=== PATIENT | male | born 1960 | race Caucasian/White ===

== ENCOUNTER → 2017-09-20 | Outpatient (CLI) | payer SELFPAY ==
[~2017-09-20] MED LIST: DOXY100C2; HYDR-3720 PO; HYDR1TAB; METH10TA2 PO; METH40TA2 PO; MTH10T PO; NF-ESOM40C; PRM25T; SULF1TAB38 PO
--- NOTE | 2017-09-20 11:28 | Diagnostic Imaging Report ---
EXAMINATION: Ultrasound of the liver. INDICATION: Chronic active hepatitis B. FINDINGS: The pancreas is obscured by bowel gas. The liver is slightly heterogenous with no focal mass. The gallbladder demonstrates no stones or wall thickening. The gallbladder is distended measuring 5.7 cm in short axis. There is no pericholecystic fluid. The sonographic Cuadra sign is reportedly negative. The CBD is 9 mm in caliber. The right kidney is 11.2 cm in length with no hydronephrosis or focal lesion. No ascites. IMPRESSION: 1. A hydropic gallbladder is seen without stones or evidence of cholecystitis. 2. Dilated CBD. 3. Suggestion of liver cirrhosis without focal liver mass. Dictated by: Dictated on workstation # [id number]
== END ==
LOC: RAD 07:45
PROVIDERS: ATTEND Pediatrics
DX: B18.1 Chronic viral hepatitis B without delta-agent (principal)
CPT/HCPCS: 76705

== ENCOUNTER 2022-10-28 08:43 | Outpatient (CLI) | payer MEDICARE, OTHER ==
[~2022-10-28] VITALS: Ht 177.8 cm; Wt 84.0 kg
[2022-10-28 10:34] VITALS: BP 149/94
[2022-10-28 10:40] LABS: BILIRUBIN,URINE NEGATIVE (NEGATIVE); CLARITY,URINE CLEAR; COLOR,URINE YELLOW; GLUCOSE, URINE (UA) NEGATIVE (NEGATIVE); KETONES,URINE NEGATIVE (NEGATIVE); LEUKOCYTE ESTERASE ,URINE NEGATIVE (NEGATIVE); NITRITE,URINE NEGATIVE (NEGATIVE); PROTEIN,URINE NEGATIVE (NEGATIVE)
--- NOTE | 2022-10-28 10:44 | Physical Therapy Pre-Op Eval ---
PT Pre-Surgical Assessment Type of Surgery Type of Surgery: left TKA Prior Level of Function Current Living Status: patient states he doesn't live alone Locomotion (Upon Admit): Independent PLOF DME: Front Wheeled Walker, Crutches Subjective Entry Into Home: Stairs With Railing Steps Into Home: 5 Motor Control Motor Control: Motor Control WNL ROM ROM: WFL Strength Strength: WFL Gait Patient performs transfers and ambulation independently, doesn't use a cane or walker previously. Treatment Rendered Treatment: Patient instructed in assistive device, supported ambulation. Patient instructed in and given written program of ROM and strengthening exercises to be preformed post-op. Patient instructed in movement precautions where applicable. Patient demonstrates understandings of post-operative therapy protocol including gait pattern and exercise program. Pre-operative instruction completed; await physical therapy orders after surgery. Treatment Goal Met: Yes Assessment Goals Acheived: I Ambulation w/ FWW, Understands P-op Precaut, I Post-op Exercises Charges/GCodes Time In: 1025 Time Out: 1035 Total Billed Treatment Time: 10 Total Billed Treatment 1 visit LILIA SIMENTAL PT Oct 28, 2022 10:44
[2022-10-28 10:52] LABS: BACTERIA,URINE NEGATIVE /HPF
[2022-10-28] MEDS ORDERED: TENO25TA PO (10:56)
[2022-10-28] MEDS ORDERED: METH40TA2 PO (10:56)
[2022-10-28] MEDS ORDERED: LOVA40TA2 PO (10:56)
[2022-10-28] MEDS ORDERED: LISI20TA26 PO (10:56)
[2022-10-28 11:05] LABS: BASOPHILS % (AUTO) 0 % (0-10); EOSINOPHILS # (AUTO) 0.1 10^3/uL (0.0-0.3); EOSINOPHILS % (AUTO) 1 % (0-10); HEMATOCRIT 42 % (40-54); HEMOGLOBIN 14.1 g/dL (13.3-17.7); LYMPHOCYTES # (AUTO) 1.2 10^3/uL (1.0-4.0); LYMPHOCYTES % (AUTO) 26 % (12-44); MEAN CORPUSCULAR HEMOGLOBIN 32 pg (25-34); MEAN CORPUSCULAR HGB CONC 34 g/dL (32-36); MEAN CORPUSCULAR VOLUME 96 fL (80-99); MEAN PLATELET VOLUME 9.7 fL (9.0-12.2); MONOCYTES # (AUTO) 0.9 10^3/uL (0.0-1.0); MONOCYTES % (AUTO) 18 % (0-12); NEUTROPHILS # (AUTO) 2.5 10^3/uL (1.8-7.8); NEUTROPHILS % (AUTO) 53 % (42-75); PLATELET COUNT 163 10^3/uL (130-400); WHITE BLOOD COUNT 4.7 10^3/uL (4.3-11.0)
[2022-10-28 11:13] LABS: PROTHROMBIN TIME PATIENT 13.2 SEC (12.2-14.7)
[2022-10-28 11:22] LABS: ALBUMIN 4.2 GM/DL (3.2-4.5); BILIRUBIN,TOTAL 0.8 MG/DL (0.1-1.0); CALCIUM 8.9 MG/DL (8.5-10.1); CREATININE SERUM 0.88 MG/DL (0.60-1.30); POTASSIUM 4.2 MMOL/L (3.6-5.0); TOTAL PROTEIN 7.2 GM/DL (6.4-8.2)
[2022-10-28 11:25] LABS: ERYTHROCYTE SEDIMENTATION RATE 12 MM/HR (0-30)
--- NOTE | 2022-10-28 12:00 | Diagnostic Imaging Report ---
EXAMINATION: Chest 2 view HISTORY: Preop clearance. History of knee. COMPARISON: None available. FINDINGS: The lung volumes are normal. No focal consolidation is seen. No large pleural effusion or pneumothorax is seen. The cardiomediastinal silhouette is normal in size and contour. No acute osseous abnormality is seen. IMPRESSION: 1. No acute pleuroparenchymal process. Dictated by: Dictated on workstation # [id number]
== END 2022-10-28 12:38 ==
LOC: PREOP 08:43
PROVIDERS: ATTEND Orthopaedic Surgery
DX: Z01.818 Encounter for other preprocedural examination (principal); M17.12 Unilateral primary osteoarthritis, left knee
CPT/HCPCS: 36415; 71046; 80053; 81000; 82308; 85025; 85610; 85652; 86850; 86900; 86901; 87081

== ENCOUNTER 2022-11-04 05:54 | Inpatient (IN) | payer MEDICARE, OTHER ==
--- NOTE | 2022-10-28 07:16 | HISTORY AND PHYSICAL ---
DATE OF SERVICE: 11/04/2022 ADMISSION HISTORY AND PHYSICAL This will be inpatient admission on 11/04/2022 for left total knee arthroplasty. The patient will require regular inpatient admission due to pain management, need for physical therapy and gait abnormalities. HISTORY: The patient is a 62-year-old active gentleman with longstanding left knee pain. He has undergone treatment with multiple injections with no current relief. He reports activity limitations because of the knee. Radiographs reveal severe medial and patellofemoral arthrosis with complete loss of joint space. Due to functional impairment, failure to improve with conservative measures, the patient elected to proceed with surgical intervention. REVIEW OF SYSTEMS: No chest pain, no shortness of breath. No dysuria. PAST MEDICAL HISTORY: 1. Significant for opioid use disorder and on methadone for this. 2. Chronic hepatitis B, diabetes mellitus, hyperlipidemia, hypertension, osteoarthritis. PAST SURGICAL HISTORY: Hand and colonoscopy. FAMILY HISTORY: Significant for diabetes and cardiovascular disease. PRIMARY CARE PROVIDER: Dr. Sylvie Purdy. MEDICATIONS: 1. Voltaren arthritis. 2. Vemlidy. 3. Lovastatin. 4. Lisinopril. 5. Methadone. ALLERGIES: No known drug allergies. SOCIAL HISTORY: The patient does smoke tobacco. Denies alcohol use. PHYSICAL EXAM: GENERAL: The patient is well-developed, well-nourished, in no acute distress. HEENT: Normocephalic, atraumatic. Pupils equal, round, react to light. Oropharynx is clear. NECK: Supple. No lymphadenopathy. LUNGS: Clear to auscultation bilaterally. HEART: Regular rate and rhythm. ABDOMEN: Soft, nontender, nondistended. EXTREMITIES: His left knee demonstrates varus alignment, markedly tender along the medial joint line, pain with Jose Luis's. His range of motion is 0/2/125. There is no varus or valgus laxity. Negative anterior and posterior drawer. IMPRESSION: Severe left knee osteoarthritis, unresponsive to conservative measures. PLAN: Left total knee arthroplasty. The risks, benefits, options, ramifications and recovery have been discussed at length with the patient. He understands and wishes to proceed. He will be for inpatient admission on 11/04/2022. Job ID: [id number] DocumentID: [id number] Dictated Date: 10/19/2022 09:30:14 Asbestos Siding Mechanic Date: 10/19/2022 12:52:00 Dictated By: NELSON GROVER MD
[~2022-11-04] VITALS: Ht 177.8 cm; Wt 84.0 kg
[2022-11-04] VITALS (13 sets, daily range): BP systolic 126–179; BP diastolic 56–99
[~2022-11-04 05:54] MED LIST changes: +LISI20TA26 PO; +LOVA40TA2 PO; +TENO25TA PO
[2022-11-04] MEDS ORDERED: CEFUROXIME INJECTION 1,500 MG in NS (IVPB) 50 ML IV ONE (06:15)
[2022-11-04] MEDS: LACTATED RINGERS 1,000 ML IV PRN ×2 (06:43→07:58)
[2022-11-04] MEDS ORDERED: MIDAZOLAM 2 MG/2 ML (VERSED) VIAL ONE (06:49)
[2022-11-04] MEDS ORDERED: ROPIVACAINE 5MG/ML 30ML VIAL ONE (06:49)
[2022-11-04] MEDS ORDERED: fentaNYL INJ 100 MCG/2 ML AMP ONE ×3 (07:08→09:21)
[2022-11-04] MEDS ORDERED: oxyCODONE/APAP 5/325MG (PERCOCET 5) TABLET PO PRN (07:30)
[2022-11-04] MEDS ORDERED: ONDANSETRON 4 MG/2 ML (SDV) Z0FRAN IVP PRN ×2 (07:30→09:30)
[2022-11-04] MEDS ORDERED: diphenhydrAMINE 50 MG/ML INJ (BENADRYL) IVP PRN (07:30)
--- NOTE | 2022-11-04 07:38 | Progress Note-Post Operative ---
Post-Operative Progess Note Surgeon (s)/Used Car Salesperson (s) Surgeon NELSON GROVER MD Used Car Salesperson: Dustin Francis Pre-Operative Diagnosis left knee primary ostearthritis Post-Operative Diagnosis left knee primary ostearthritis Procedure & Operative Findings Date of Procedure 11/04/22 Procedure Performed/Findings left total knee arthroplasty Anesthesia Type GETA Estimated Blood Loss Estimated blood loss (mL): minimal Specimens/Packing Specimens Removed none Packing: none NELSON GROVER MD Nov 04, 2022 07:38
--- NOTE | 2022-11-04 07:38 | Progress Note-Pre Operative ---
Pre-Operative Progress Note Date of Available H&P: Oct 19, 2022 Date H&P Reviewed: Nov 04, 2022 Time H&P Reviewed: 07:11 Changes from last HP none Pre-Operative Diagnosis: left knee primary ostearthritis NELSON GROVER MD Nov 04, 2022 07:38
--- NOTE | 2022-11-04 07:40 | D/C HH Face to Face Order ---
D/C Face to Face Orders Reconcile Patient Problems Problems Reviewed?: Yes Instructions for Patient Via [facility], Patient Instructions/FollowUp: three weeks Physician to follow Patient: three weeks Discharge Diet for Home: Regular Diet Patient Data-Allergies,Ht & Wt Patient Allergies: Coded Allergies: No Known Drug Allergies (Unverified , 10/28/22) Height (Feet): 5 Height (Inches): 10.00 Weight (Pounds): 205 Weight (Ounces): 0.0 Home Health Need/Face to Face Date of Face to Face: Nov 04, 2022 Clinical Findings: Muscle weakness, Pain with ambulation I have seen Pt [id number]: Yes Discharged To: Home Diagnosis/Conditions: left total knee arthroplasty Patient is Homebound due to: Muscle weakness, Pain w/ambulation Homebound Status Due to the above stated illness, injury or surgical procedure (medical condition or diagnosis) and associated clinical findings, the patient is homebound because of his/her inability to leave home except with aid of a supportive device and/or person AND leaving the home requires a considerable and taxing effort or is medically contraindicated. Pt req the following assistanc: Walker Home Health Nursing Orders Home Health Services Order: Physical Therapy-Evaluate & Treat DC left knee joi and apply steri strips 11/18/22 Home Health Infusion Therapy Line Start Date: Nov 04, 2022 Therapy Orders Therapy Orders: Physical Therapy, PT to assess for OT Therapy Specific Orders: Eval assistive deivces, Teach enviro modifications/safety, Gait training, Increase strength/endurance, Provider maintenance therapy, Restore ROM Certify Stmt I certify that this patient is under my care and that I, a nurse practitioner or a physician; a retail administrative assistant working with me, had a face to face encounter that - meets the physician face to face encounter requirements with this patient as dated. NELSON GROVER MD Nov 04, 2022 07:40
[2022-11-04] MEDS ORDERED: INTRA-ARTICULAR IU ONE ×5 (08:00)
[2022-11-04] MEDS ORDERED: proPOfol 200 MG/20 ML (DIPRIVAN) VIAL IV ONE (08:13)
[2022-11-04] MEDS ORDERED: HYDROmorphone 2 MG/ML VIAL (DILAUDID) ONE ×2 (08:13→09:44)
[2022-11-04] MEDS ORDERED: TRANEXAMIC ACID 100 MG/ML 10 ML INJECTION ONE (08:14)
[2022-11-04] MEDS ORDERED: ONDANSETRON 4 MG/2 ML (SDV) Z0FRAN ONE (08:14)
[2022-11-04] MEDS ORDERED: SEVOFLURANE (ULTANE) 15 ML INHAL SOLN ONE (09:00)
[2022-11-04] MEDS: SENNA W/DOCUSATE (SENOKOT S) TABLET PO SCH ×2 (09:00→21:00)
[2022-11-04] MEDS ORDERED: fentaNYL INJ 100 MCG/2 ML AMP IVP ONE (09:30)
[2022-11-04] MEDS ORDERED: HYDROmorphone 2 MG/ML VIAL (DILAUDID) IV ONE (09:30)
--- NOTE | 2022-11-04 09:35 | Progress Note ---
Standard Progress Note Progress Notes/Assess & Plan Date Seen by a Provider: Nov 04, 2022 Time Seen by a Provider: 09:34 Progress/Assessment & Plan post op check no complaints radiographs--HW well positioned without fracture LLE--2 plus DP pulse with brisk cap refill intact DF and PF of toes and ankle sensation intact to light touch throughout s/p LTKA mobilize as able NELSON GROVER MD Nov 04, 2022 09:35
[2022-11-04] MEDS: NS IV 1000 ML 1,000 ML IV SCH ×2 (10:59→20:44)
[2022-11-04] MEDS: morphine PCA 100 MG/100 ML BAG IV PRN (11:02)
[2022-11-04] MEDS ORDERED: FLU QUADRIvalent (6 months+) 60 mcg/0.5 ml 2022-23 (Fluzone) IM ONE (12:00)
--- NOTE | 2022-11-04 13:56 | Physical Therapy Evaluation ---
PT Evaluation-General Medical Diagnosis Admission Date Nov 04, 2022 at 05:54 Medical Diagnosis: left TKA Onset Date: Nov 04, 2022 Therapy Diagnosis Therapy Diagnosis: impaired mobility, ROM Height/Weight Height (Feet): 5 Height (Inches): 10.00 Weight (Pounds): 205 Weight (Ounces): 0.0 Precautions Precautions/Isolations: Standard Precautions Weight Bear Status Left Lower Extremity: Left Weight Bearing/Tolerated Referral Physician: Tito Reason for Referral: Evaluation/Treatment Medical History Additional Medical History PAST MEDICAL HISTORY: 1. Significant for opioid use disorder and on methadone for this. 2. Chronic hepatitis B, diabetes mellitus, hyperlipidemia, hypertension, osteoarthritis. PAST SURGICAL HISTORY: Hand and colonoscopy. Reviewed History: Yes Social History Home: Single Level Current Living Status: father Entry Into Home: Stairs With Railing PT Steps Into Home: 4 Prior Prior Level of Function SCALE: Activities may be completed with or without assistive devices. 0-Sxlzylddgt-tpafrgy completes the activity by him/herself with no assistance from a helper. 5-Set-up or Clean-up Assistance-helper sets up or cleans up; patient completes activity. [place] assists only prior to or following the activity. 4-Supervision or Touching Assistance-helper provides verbal cues and/or touching/steadying and/or contact guard assistance as patient completes activity. Assistance may be provided throughout the activity or intermittently. 3-Partial/Moderate Assistance-helper does LESS THAN HALF the effort. [place] lifts, holds or supports trunk or limbs, but provides less than half the effort. 2-Substantial/Maximal Assistance-helper does MORE THAN HALF the effort. [place] lifts or holds trunk or limbs and provides more than half the effort. 2-Nlohygfjz-cixwsw does ALL the effort. Patient does none of the effort to complete the activity. Or, the assistance of 2 or more helpers is required for the patient to complete the activity. If activity was not attempted, code reason: 7-Patient Refused. 9-Not Applicable-not attempted and the patient did not perform the activity before the current illness, exacerbation or injury. 10-Not Attempted due to Environmental Limitations-(lack of equipment, weather restraints, etc.). 88-Not Attempted due to Medical Conditions or Safety Concerns. Bed Mobility: 6 Transfers (B,C,W/C): 6 Gait: 6 Stairs: 6 Indoor Mobility (Ambulation): Independent Stairs: Independent PT Evaluation-Current Subjective Patient in bed pre tx, agrees to PT, has 5/10 pain in left knee Pt/Family Goals to be independent at home Objective Patient Orientation: Person, Place, Situation Attachments: SCD's, IV ROM/Strength ROM Lower Extremities left knee extension +5 degrees, flexion 80 degrees Sensory Vision: Wears Glasses Hearing: Functional Sensation Right Lower Extremit: Intact Sensation Left Lower Extremity: Intact Transfers Roll Left to Right (QC): 4 Sit to Lying (QC): 4 Lying to Sitting/Side of Bed(Q: 4 Sit to Stand (QC): 4 SBA with supine <-> sit, CGA for sit to stand Gait Walk 10 feet (QC): 4 Walk 50 ft with 2 Turns(QC): 4 Distance: 60' Gait Assistive Device: FWW Comments/Gait Description slow ambulation, antalgic, good step through and heel strike Balance Sitting Static: Normal Sitting Dynamic: Normal Standing Static: Good Standing Dynamic: Good Treatment LLE total knee protocol x10 (AP, QS, HS, SAQ, SLR) Assessment/Needs Patient in bed post tx with nurse call, phone, tray, all needs met. Patient has impaired mobility and ROM. Just needs CGA to stand and ambulate. Rehab Potential: Fair PT Skilled Nursing Goals Staple Processing Machine Operator Goals PT Skilled Nursing Goals Time Frame: Nov 11, 2022 Roll Left & Right (QC): 6 Sit to Lying (QC): 6 Lying-Sitting on Side/Bed(QC): 6 Sit to Stand (QC): 6 Chair/Ccc-ah-Goxzv Xfer(QC): 6 Walk 10 feet (QC): 6 Walk 50ft with 2 Turns (QC): 6 Walk 150 ft (QC): 6 1 Step (curb) (QC): 4 4 Steps (QC): 4 PT Plan Problem List Problem List: Activity Tolerance, Functional Strength, Safety, Balance, Gait, Transfer, Bed Mobility, ROM Treatment/Plan Treatment Plan: Continue Plan of Care Treatment Plan: Bed Mobility, Education, Functional Activity Vincenzo, Functional Strength, Gait, Safety, Therapeutic Exercise, Transfers Treatment Duration: Nov 11, 2022 Frequency: 11 times per week Estimated Hrs Per Day: .25 hour per day Patient and/or Family Agrees t: Yes Safety Risks/Education Patient Education: Gait Training, Transfer Techniques, Correct Positioning, Safety Issues Teaching Recipient: Patient Teaching Methods: Demonstration, Discussion Response to Teaching: Reinforcement Needed Discharge Recommendations Plan Patient will perform bed mobility and transfer training, balance and endurance training, functional strengthening, stair training, gait training, and educat ion, to improve functional mobility and independence at home. Therapy Discharge Recommendati: Home & Family, Post Acute PT Time Time In: 1307 Time Out: 1327 DATE: Nov 04, 2022 Total Billed Treatment Time: 20 Total Billed Treatment 1 visit EVL 20' LILIA ESTRADA PT Nov 04, 2022 13:56
--- NOTE | 2022-11-04 14:16 | OPERATIVE REPORT ---
DATE OF SERVICE: 11/04/2022 PREOPERATIVE DIAGNOSIS: Left knee primary osteoarthritis. POSTOPERATIVE DIAGNOSIS: Left knee primary osteoarthritis. PROCEDURE: Left total knee arthroplasty. SURGEON: Dr. Grover. WIRE WORKER: Dustin Francis, who assisted throughout the procedure and closed the incision. ANESTHESIA: General endotracheal by Jahaira Mayers CRNA. TOURNIQUET TIME: Approximately 60 minutes at 300 mmHg. ESTIMATED BLOOD LOSS: Minimal. DRAINS: None. COMPLICATIONS: None. POSTOPERATIVE PLAN: Routine total knee arthroplasty protocol. The patient was transferred to the recovery room awake and stable condition. MATERIALS: MicroPort cemented size 5 femur, cemented size 5 tibia with 10 mm insert and a cemented size 32 patellar button. STATEMENT OF MEDICAL NECESSITY: The patient is a 62-year-old gentleman with longstanding progressive worsening left knee pain. Radiographs revealed severe medial and patellofemoral joint space narrowing. He had tried rest, activity modifications and injections without relief. Due to progressive symptoms and failure to improve with conservative measures, the patient elected to proceed with surgical intervention. DESCRIPTION OF PROCEDURE: After risks and benefits of procedure were discussed and questions were answered and informed consent was signed and placed on chart, the operative site was confirmed in the preoperative holding area initialed by surgeon. The patient was then transferred to the operating room. After adequate level of general endotracheal anesthetic was obtained, timeout was called, confirming the operative site. The left lower extremity was prepped and draped in the usual sterile fashion with the leg elevated and the knee flexed, tourniquet was inflated to 300 mmHg. Standard anterior approach was utilized. Hemostasis was obtained with cautery. Medial parapatellar arthrotomy was performed, leaving 1 cm cuff on the patella for later reattachment. Portion of the fat pad was resected. A subperiosteal release was performed on the proximal medial tibia, being careful to stay on the bony surface. The ACL was resected. The intramedullary guide was passed into the femoral canal. The distal cutting block was placed. Distal cut was made. The femur sized to a size 5. The 5 cutting block was placed parallel to the epicondylar axis and cuts were made from posterior to anterior. A subperiosteal release was then carefully performed on the posterior distal femur, being careful to stay on the bony surface. Intramedullary guide was then passed into the tibia. The cutting block was placed. The drop betzy transected the intermalleolar axis and cut was made. The 5 baseplate provided excellent coverage. This was pinned into position. The drop betzy transected the intermalleolar . This was prepared with a drill and keel punch. The femoral trial was placed. The trochlear cut was made. The patella was then prepared by resecting 10 mm off the undersurface. The peg guide was placed and the peg holes were drilled. The trials were inserted with 10 mm insert. Full extension was easily obtained, 120 degrees of flexion with gravity was easily obtained. The patella tracked well. There was no anterior/posterior or medial/lateral laxity in flexion or extension. The trials were removed. The joint was irrigated with pulse lavage. A periarticular block was placed in the posterior capsule, medial and lateral retinaculum extensor mechanism, subcutaneous tissue. The bone ends were irrigated and dried. Tibial baseplate was cemented into position. Excessive cement was removed. The superior surface was irrigated and dried. The polyethylene insert was placed. Distal femur was irrigated and dried. The femoral prosthesis was cemented into position. Excessive cement was removed. The knee was brought out in full extension until cement had cured. The undersurface of the patella was irrigated and dried. The patellar button was cemented into position. Excessive cement was removed. Once the cement had cured, the knee was taken through range of motion, 120 degrees of flexion with gravity was easily obtained. Full extension was easily obtained. There was no anterior/posterior or medial/lateral laxity in flexion or extension. The patella tracked well. The joint was further irrigated with pulse lavage. The arthrotomy was closed with #2 Tevdek in euddkc-od-oznbm interrupted fashion. The knee was flexed. The repair was stable. The subcutaneous tissues were irrigated with pulse lavage using a total of 6 liters throughout the procedure. The 0 Vicryl was used for deep subcutaneous layer, 3-0 Vicryl for the superficial subcutaneous layers and joi used on the skin. A soft dressing was applied. The tourniquet was deflated. The patient was transported to the recovery room awake and stable condition. Job ID: [id number] DocumentID: [id number] Dictated Date: 11/04/2022 09:15:38 Curriculum Writer Date: 11/04/2022 14:14:00 Dictated By: NELSON GROVER MD
[2022-11-04] MEDS: CEFUROXIME INJECTION 750 MG in NS (IVPB) 50 ML IV SCH (14:54)
--- NOTE | 2022-11-04 14:56 | Diagnostic Imaging Report ---
Indication: Left knee arthroplasty AP and lateral views left knee are obtained. Left knee prosthesis appears in good alignment. There is no sign of fracture or device loosening. There is no unexpected radiopaque foreign body post surgery. Impression: Well aligned left knee prosthesis with no unexpected radiopaque foreign body. Dictated by: Dictated on workstation # [id number]
[2022-11-04] MEDS ORDERED: AMOX500C2 PO (15:47)
[2022-11-05] MEDS: NS IV 1000 ML 1,000 ML IV SCH ×2 (00:19→20:29)
[2022-11-05] MEDS: CEFUROXIME INJECTION 750 MG in NS (IVPB) 50 ML IV SCH (00:25)
[2022-11-05 03:43] VITALS: BP 133/81
[2022-11-05 06:03] LABS: HEMOGLOBIN 11.4 g/dL (13.3-17.7)
[2022-11-05] MEDS: ENOXAPARIN INJECTION 30 MG/0.3 ML SYR SC SCH ×2 (07:54→20:27)
[2022-11-05] MEDS: SENNA W/DOCUSATE (SENOKOT S) TABLET PO SCH ×2 (07:54→20:27)
[2022-11-05] MEDS: ASPIRIN E.C. 81 MG (ECOTRIN) TAB PO SCH (07:54)
[2022-11-05] MEDS: morphine PCA 100 MG/100 ML BAG IV PRN (08:02)
--- NOTE | 2022-11-05 08:08 | Progress Note ---
Standard Progress Note Progress Notes/Assess & Plan Date Seen by a Provider: Nov 05, 2022 Time Seen by a Provider: 08:07 Progress/Assessment & Plan post op check no complaints radiographs--HW well positioned without fracture LLE--2 plus DP pulse with brisk cap refill intact DF and PF of toes and ankle sensation intact to light touch throughout s/p LTKA mobilize as able Final Diagnosis no complaints Vital Signs Date Time Temp Pulse Resp B/P (MAP) Pulse Ox O2 Delivery O2 Flow Rate FiO2 11/05/22 06:05 Room Air 0.00 11/05/22 03:43 36.7 58 18 133/81 (98) Room Air 11/04/22 23:29 36.5 63 16 133/80 (97) 95 Room Air 11/04/22 21:00 Room Air 11/04/22 21:00 18 11/04/22 19:32 36.7 67 20 144/82 (102) 93 Room Air 11/04/22 18:57 18 11/04/22 18:22 Room Air 11/04/22 15:56 36.5 67 20 143/86 (105) 94 Room Air 11/04/22 11:45 36.6 63 16 164/95 (118) Room Air 11/04/22 10:37 36.4 79 16 164/92 (116) 94 Room Air 11/04/22 10:05 Room Air 11/04/22 10:00 36.1 16 162/96 (118) 95 Room Air 11/04/22 09:50 14 147/95 (112) 97 Room Air 11/04/22 09:50 Room Air 11/04/22 09:40 16 150/99 (116) 100 OxyMask 2.00 11/04/22 09:32 OxyMask 3.00 11/04/22 09:30 19 159/87 (111) 100 OxyMask 2.00 11/04/22 09:25 OxyMask 4.00 11/04/22 09:20 22 165/96 (119) 100 OxyMask 4.00 11/04/22 09:08 36.8 20 126/56 (79) 98 OxyMask 6.00 11/04/22 09:08 OxyMask 6.00 I & O 11/05/22 07:00 Intake Total 3540 ml Output Total 400 ml Balance 3140 ml Laboratory Tests Test 11/05/22 05:40 Range/Units Hemoglobin 11.4 L 13.3-17.7 g/dL Hematocrit 34 L 40-54 % LLE--NVI distally no calf tenderness s/p LTKA doing well PT /OT NELSON GROVER MD Nov 05, 2022 08:08
[2022-11-05 08:33] VITALS: BP 170/85
[2022-11-05] MEDS: lisINopril 20 MG (PRINIVIL) TABLET PO SCH (08:38)
--- NOTE | 2022-11-05 08:47 | Occupational Therapy Eval ---
OT Evaluation-General/PLF Medical Diagnosis Admission Date Nov 04, 2022 at 05:54 Medical Diagnosis: left TKA Onset Date: Nov 04, 2022 Therapy Diagnosis Therapy Diagnosis: n/a Height/Weight Height (Feet): 5 Height (Inches): 10.00 Weight (Pounds): 205 Weight (Ounces): 0.0 Precautions Precautions/Isolations: Standard Precautions Referral Physician: Tito Referral Reason: Evaluation/Treatment Medical History Additional Medical History Hepatitis B, DM, OA, surgery on hand and colonoscopy Current History s/p L TKA 11/04/22 Reviewed History: Yes Social History Home: Single Level Current Living Status: Significant Other (& father) Entry Into Home: Stairs With Railing Steps Into Home: 4 ADL-Prior Level of Function SCALE: Activities may be completed with or without assistive devices. 6-Jnbsnwszyl-ildkdwa completes the activity by him/herself with no assistance from a helper. 5-Set-up or Clean-up Assistance-helper sets up or cleans up; patient completes activity. [place] assists only prior to or following the activity. 4-Supervision or Touching Assistance-helper provides verbal cues and/or touching/steadying and/or contact guard assistance as patient completes activity. Assistance may be provided throughout the activity or intermittently. 3-Partial/Moderate Assistance-helper does LESS THAN HALF the effort. [place] lifts, holds or supports trunk or limbs, but provides less than half the effort. 2-Substantial/Maximal Assistance-helper does MORE THAN HALF the effort. [place] lifts or holds trunk or limbs and provides more than half the effort. 5-Xuzexudbe-lqpbls does ALL the effort. Patient does none of the effort to complete the activity. Or, the assistance of 2 or more helpers is required for the patient to complete the activity. If activity was not attempted, code reason: 7-Patient Refused. 9-Not Applicable-not attempted and the patient did not perform the activity before the current illness, exacerbation or injury. 10-Not Attempted due to Environmental Limitations-(lack of equipment, weather restraints, etc.). 88-Not Attempted due to Medical Conditions or Safety Concerns. ADL PLOF Comments Pt reports IND with ADLs and functional mobility at PLOF, no AD. Pt has a walk in shower with SC available. Pt owns a walker. Self Care: Independent Functional Cognition: Independent DME/Equipment: Bath Chair OT Current Status Subjective Pt up in recliner, agreeable to OT Tx. Mental Status/Objective Attachments: IV, Polar Pack Current Glasses/Contacts: Yes Upper Extremity ROM WFL Upper Extremity Strength grossly 4+/5 ADL-Treatment Eating (QC): 6 Oral Hygiene (QC): 6 Lower Body Dressing (QC): 6 Toileting Hygiene (QC): 6 Other Treatments Pt in recliner, donned shorts without difficulty. Pt states no concerns with ability to complete ADLs at discharge, he lives with his father and girlfriend, indicates g.f can assist as needed. Pt declined further OT services. Post tx, pt in recliner, call light in reach and all needs met. Education OT Patient Education: Correct positioning, Energy conservation, Modified ADL techniques, Progress toward Goal/Update tx plan, Purpose of tx/functional activities, Rehab process, Safety issues, Transfer techniques Teaching Recipient: Patient Teaching Methods: Discussion Response to Teaching: Verbalize Understanding OT Usp Goals Usp Goals 1=Demonstrate adherence to instructed precautions during ADL tasks. 2=Patient will verbalize/demonstrate understanding of assistive devices/modifications for ADL. 3=Patient will improve strength/tolerance for activity to enable patient to perform ADL's. OT Education/Plan Problem List/Assessment Assessment: No Skilled OT Needs ID'd No skilled OT services indicated at this time, pt is independent with ADLs and has no concerns with his ability to complete ADLs at discharge. D/C from OT. Discharge Recommendations Plan/Recommendations: Discharge/Goals Met Treatment Plan/Plan of Care Patient would benefit from OT for education, treatment and training to promote independence in ADL's, mobility, safety and/or upper extremity function for ADL's. Plan of Care: ADL Retraining, Functional Mobility Treatment Duration: Nov 05, 2022 Frequency: 1 time per week (eval only) Estimated Hrs Per Day: .25 hour per day Agreement: Yes Rehab Potential: Good Time Start Time: 08:31 Stop Time: 08:40 DATE: Nov 05, 2022 Total Time Billed (hr/min): 9 Billed Treatment Time 1, UBALDO BENNETT OT Nov 05, 2022 08:46
--- NOTE | 2022-11-05 09:48 | Physical Therapy Daily Note ---
PT Daily Note-Current Subjective Patient agrees to PT. Pain Numeric Pain Scale: 5-Moderate Pain Location: Left Location Body Site: Knee Pain Description: Acute Section J - Health Conditions 1. Rarely or not at all 2. Occasionally 3. Frequently 4. Almost constantly 8. Unable to answer Pain Effect on Sleep: 1 Pain Interference with Therapy: 1 Pain Interference w/Day-to-Day: 1 Mental Status Patient Orientation: Normal For Age Attachments: Polar Pack, IV Transfers SCALE: Activities may be completed with or without assistive devices. 4-Olndxrridf-cbxkyby completes the activity by him/herself with no assistance from a helper. 5-Set-up or Clean-up Assistance-helper sets up or cleans up; patient completes activity. [place] assists only prior to or following the activity. 4-Supervision or Touching Assistance-helper provides verbal cues and/or touching/steadying and/or contact guard assistance as patient completes activity. Assistance may be provided throughout the activity or intermittently. 3-Partial/Moderate Assistance-helper does LESS THAN HALF the effort. [place] lifts, holds or supports trunk or limbs, but provides less than half the effort. 2-Substantial/Maximal Assistance-helper does MORE THAN HALF the effort. [place] lifts or holds trunk or limbs and provides more than half the effort. 6-Wpuqefstd-ovphxo does ALL the effort. Patient does none of the effort to complete the activity. Or, the assistance of 2 or more helpers is required for the patient to complete the activity. If activity was not attempted, code reason: 7-Patient Refused. 9-Not Applicable-not attempted and the patient did not perform the activity before the current illness, exacerbation or injury. 10-Not Attempted due to Environmental Limitations-(lack of equipment, weather restraints, etc.). 88-Not Attempted due to Medical Conditions or Safety Concerns. Lying to Sitting/Side of Bed(Q: 6 Sit to Stand (QC): 6 Chair/Swt-hi-Ufseb Xfer(QC): 6 Weight Bearing Left Lower Extremity: Left Weight Bearing/Tolerated Gait Training Distance: 300' Walk 10 feet (QC): 5 Walk 50 ft with 2 Turns(QC): 5 Walk 150 ft (QC): 5 Gait Assistive Device: FWW slow, steady, reciprocal gait pattern Exercises Supine Ex: Ankle pumps, Quad Set, Heel Slides, Straight leg raise Supine Reps: 15 Seated Therapy Exercises: Long arc quads Seated Reps: 15 Assessment Patient progressing with treatment plan and has AROM 0-90 degrees in supine left knee. PT to increase activity and patient will dismiss tomorrow a.m. after PT. PT Senior Living Goals Route Driver Salesperson Goals PT Senior Living Goals Time Frame: Nov 11, 2022 Roll Left & Right (QC): 6 Sit to Lying (QC): 6 Lying-Sitting on Side/Bed(QC): 6 Sit to Stand (QC): 6 Chair/Fae-xj-Hqnzk Xfer(QC): 6 Walk 10 feet (QC): 6 Walk 50ft with 2 Turns (QC): 6 Walk 150 ft (QC): 6 1 Step (curb) (QC): 4 4 Steps (QC): 4 PT Plan Treatment/Plan Treatment Plan: Continue Plan of Care Treatment Plan: Bed Mobility, Education, Functional Activity Vincenzo, Functional Strength, Gait, Safety, Therapeutic Exercise, Transfers Treatment Duration: Nov 11, 2022 Frequency: 11 times per week Estimated Hrs Per Day: .25 hour per day Patient and/or Family Agrees t: Yes Time Time In: 800 Time Out: 829 DATE: Nov 05, 2022 Total Billed Treatment Time: 29 Total Billed Treatment 1 visit EX 15 min GT 14 min TRAVIS MCWILLIAMS PT Nov 05, 2022 09:48
[2022-11-05] MEDS ORDERED: METH10OR PO (09:59)
--- NOTE | 2022-11-05 10:16 | Consultation ---
HPI History of Present Illness: 62 yo male admitted after left knee replacement. This morning he is having a lot of pain, but just had PT. His back has been hurting even prior to this due to favoring his leg. Source: patient Exam Limitations: no limitations Date seen by provider: Nov 05, 2022 Time Seen by Provider: 10:12 Attending Physician Sylvie Purdy MD PCP Admitting Physician: Juan Díaz MD Attending Physician: Juan Díaz MD Consult Date of Admission Nov 04, 2022 at 05:54 Home Medications Home Medications Reviewed patient Home Medication Reconciliation performed by pharmacy medication reconciliations on site wastewater systems technician and/or nursing. Patients Allergies have been reviewed. Allergies Coded Allergies: No Known Drug Allergies (Unverified , 10/28/22) DJZ-Qnnmhl-Siuobl Hx Patient Social History Smoking Status: Light Tobacco Smoker (1/2 ppd) Recent Hopitalizations: No Alcohol Use?: Yes (occasional beer) Substance type: Opiates/Opioids (stable on methadone since 2014), Marijuana (re ports last use around Oct 2022) Immunizations Up To Date Tetanus Booster (TDap): Unknown Influenza Vaccine Up-to-Date: No; Not Current First/Initial COVID19 Vaccinat: 2020 Second COVID19 Vaccination Jacoby: 2020 Third COVID19 Vaccination Date: 2021 Past Medical History PMHx: HTN Chronic Hep B Cirrhosis History of opioid addiction, on chronic methadone DMII- diet controlled HLD SurgHx: Left TKA Hand surgery after brown recluse bite Family Medical History Significant Family History: Heart Disease (mother required pacemaker, father had cardiac bypass x 4), Cancer (mother breast cancer), Diabetes (mother and father), Renal Disease (mother required dialysis) Review of Systems ([facility]) Constitutional: No fever Respiratory: No cough, No short of breath Cardiovascular: No chest pain Gastrointestinal: No abdominal pain; constipation Genitourinary: No dysuria Musculoskeletal: see HPI Psychiatric/Neurological: Headache (mild since yesterday) Reviewed Test Results Reviewed Test Results Lab Laboratory Tests Test 11/05/22 05:40 Range/Units Hemoglobin 11.4 L 13.3-17.7 g/dL Hematocrit 34 L 40-54 % Physical Exam-([facility]) Physical Exam Vital Signs VS - Last 72 Hours, by Label 11/04/22 11/04/22 11/04/22 11/04/22 06:50 09:08 09:08 09:20 Temp 35.9 36.8 Pulse 72 Resp 20 20 22 B/P (MAP) 146/95 (112) 126/56 (79) 165/96 (119) Pulse Ox 99 98 100 O2 Delivery Room Air OxyMask OxyMask OxyMask O2 Flow Rate 6.00 6.00 4.00 11/04/22 11/04/22 11/04/22 11/04/22 09:25 09:30 09:32 09:40 Resp 19 16 B/P (MAP) 159/87 (111) 150/99 (116) Pulse Ox 100 100 O2 Delivery OxyMask OxyMask OxyMask OxyMask O2 Flow Rate 4.00 2.00 3.00 2.00 11/04/22 11/04/22 11/04/22 11/04/22 09:50 09:50 10:00 10:05 Temp 36.1 Resp 14 16 B/P (MAP) 147/95 (112) 162/96 (118) Pulse Ox 97 95 O2 Delivery Room Air Room Air Room Air Room Air 11/04/22 11/04/22 11/04/22 11/04/22 10:37 11:45 15:56 18:22 Temp 36.4 36.6 36.5 Pulse 79 63 67 Resp 16 16 20 B/P (MAP) 164/92 (116) 164/95 (118) 143/86 (105) Pulse Ox 94 94 O2 Delivery Room Air Room Air Room Air Room Air 11/04/22 11/04/22 11/04/22 11/04/22 18:57 19:32 21:00 21:00 Temp 36.7 Pulse 67 Resp 18 20 18 B/P (MAP) 144/82 (102) Pulse Ox 93 O2 Delivery Room Air Room Air 11/04/22 11/05/22 11/05/22 11/05/22 23:29 03:43 06:05 07:00 Temp 36.5 36.7 Pulse 63 58 Resp 16 18 18 B/P (MAP) 133/80 (97) 133/81 (98) Pulse Ox 95 O2 Delivery Room Air Room Air Room Air O2 Flow Rate 0.00 11/05/22 11/05/22 11/05/22 11/05/22 08:33 09:00 09:12 09:17 Temp 37.0 37.0 37.0 Pulse 70 Resp 20 20 B/P (MAP) 170/85 (113) Pulse Ox 95 O2 Delivery Room Air Room Air 11/05/22 12:01 Temp 37.0 Pulse 60 Resp 18 B/P (MAP) 170/83 (112) Pulse Ox 97 O2 Delivery Room Air Capillary Refill : General Appearance: WD/WN, no apparent distress Respiratory: lungs clear, normal breath sounds Cardiovascular: regular rate, rhythm, no murmur Neurologic/Psychiatric: alert, normal mood/affect Skin: warm/dry Assessment/Plan Assessment/Plan (1) Status post total left knee replacement Status: Acute (2) Hypertension Status: Chronic Assessment & Plan: Resume home medications. Qualifiers: Qualified Codes: I10 - Essential (primary) hypertension (3) Hyperlipidemia Status: Chronic Assessment & Plan: Resume home medications (4) Opiate dependence Status: Chronic Assessment & Plan: On methadone treatment. Currently on morphine data modeling specialist for acute post-op pain. LILLIAN DE LEON MD Nov 05, 2022 10:16
[2022-11-05] MEDS ORDERED: polyethylene glycoL POWDER 17 GM (MIRALAX) PACK PO ONE (10:30)
[2022-11-05 12:01] VITALS: BP_SYST 160; BP_SYST 170; BP_DIAS 83; BP_DIAS 86
[2022-11-05] MEDS: HYDROmorphone (DILAUDID) 4 MG TAB PO PRN ×3 (13:59→22:02)
--- NOTE | 2022-11-05 14:04 | Anesthesia-General Post-Op ---
General Patient Condition Mental Status/LOC: Same as Preop Cardiovascular: Satisfactory Nausea/Vomiting: Absent Respiratory: Satisfactory Pain: Controlled Complications: Absent Post Op Complications Complications None Follow Up Care/Instructions Patient Instructions None needed. Anesthesia/Patient Condition Patient Condition Patient is doing well but does C/O significant knee pain now that adductor canal block has worn off. He has stable vital signs, no apparent adverse anesthesia problems. No complications reported per nursing. ALEJANDRA SEYMOUR DO Nov 05, 2022 14:04
--- NOTE | 2022-11-05 14:05 | Physical Therapy Daily Note ---
PT Daily Note-Current Subjective Patient is currently in 10/10 left knee pain with pain medication and GENERAL II FARMWORKER. Physician is aware and changing current meds. Patient reluctantly agrees to PT. Pain Numeric Pain Scale: 10-Worst Possible Pain Location: Left Pain Description: Acute Section J - Health Conditions 1. Rarely or not at all 2. Occasionally 3. Frequently 4. Almost constantly 8. Unable to answer Pain Effect on Sleep: 4 Pain Interference with Therapy: 4 Pain Interference w/Day-to-Day: 4 Mental Status Patient Orientation: Normal For Age Attachments: Polar Pack, IV Transfers SCALE: Activities may be completed with or without assistive devices. 1-Mjdpibprzy-rwyeqkc completes the activity by him/herself with no assistance from a helper. 5-Set-up or Clean-up Assistance-helper sets up or cleans up; patient completes activity. [place] assists only prior to or following the activity. 4-Supervision or Touching Assistance-helper provides verbal cues and/or touching/steadying and/or contact guard assistance as patient completes activity. Assistance may be provided throughout the activity or intermittently. 3-Partial/Moderate Assistance-helper does LESS THAN HALF the effort. [place] lifts, holds or supports trunk or limbs, but provides less than half the effort. 2-Substantial/Maximal Assistance-helper does MORE THAN HALF the effort. [place] lifts or holds trunk or limbs and provides more than half the effort. 6-Ttuxyqrlo-uuyfhe does ALL the effort. Patient does none of the effort to complete the activity. Or, the assistance of 2 or more helpers is required for the patient to complete the activity. If activity was not attempted, code reason: 7-Patient Refused. 9-Not Applicable-not attempted and the patient did not perform the activity before the current illness, exacerbation or injury. 10-Not Attempted due to Environmental Limitations-(lack of equipment, weather restraints, etc.). 88-Not Attempted due to Medical Conditions or Safety Concerns. Lying to Sitting/Side of Bed(Q: 6 Sit to Stand (QC): 6 Chair/Twu-rr-Xceev Xfer(QC): 6 Weight Bearing Left Lower Extremity: Left Weight Bearing/Tolerated Gait Training Distance: 275' Walk 10 feet (QC): 5 Walk 50 ft with 2 Turns(QC): 5 Walk 150 ft (QC): 5 Gait Assistive Device: FWW very slow, antalgic gait (reciprocal pattern) Exercises Supine Ex: Ankle pumps, Quad Set, Heel Slides Supine Reps: 12 (minimal AAROM due to pain left knee) Seated Therapy Exercises: Long arc quads Seated Reps: 15 Assessment Patient still progressing with treatment plan. Patient is up in recliner with needs met. PT to continue to increase activity as tolerated by patient. PT Chcf Goals Chcf Goals PT Pump Technician Goals Time Frame: Nov 11, 2022 Roll Left & Right (QC): 6 Sit to Lying (QC): 6 Lying-Sitting on Side/Bed(QC): 6 Sit to Stand (QC): 6 Chair/Xub-az-Yvogd Xfer(QC): 6 Walk 10 feet (QC): 6 Walk 50ft with 2 Turns (QC): 6 Walk 150 ft (QC): 6 1 Step (curb) (QC): 4 4 Steps (QC): 4 PT Plan Treatment/Plan Treatment Plan: Continue Plan of Care Treatment Plan: Bed Mobility, Education, Functional Activity Vincenzo, Functional Strength, Gait, Safety, Therapeutic Exercise, Transfers Treatment Duration: Nov 11, 2022 Frequency: 11 times per week Estimated Hrs Per Day: .25 hour per day Patient and/or Family Agrees t: Yes Time Time In: 1330 Time Out: 1354 DATE: Nov 05, 2022 Total Billed Treatment Time: 24 Total Billed Treatment 1 visit GT 14 min EX 10 min TRAVIS MCWILLIAMS PT Nov 05, 2022 14:05
[2022-11-05 15:34] VITALS: BP 164/86
[2022-11-05] MEDS ORDERED: MELATONIN 10 MG TABLET PO PRN (18:15)
[2022-11-05] MEDS ORDERED: MELATONIN 3 MG TABLET PO PRN (18:45)
[2022-11-05 19:23] VITALS: BP 161/86
[2022-11-05] MEDS ORDERED: AtorvaSTATin TABLET 10 MG TABLET PO SCH (21:00)
[2022-11-05] MEDS ORDERED: TENOFOVIR ALAFENAMIDE FUMARATE 25 MG PO SCH (21:00)
[2022-11-06 00:17] VITALS: BP 154/93
--- NOTE | 2022-11-06 00:43 | DISCHARGE SUMMARY ---
DIAGNOSIS: 1. Left knee primary osteoarthritis. 2. Chronic hepatitis B. 3. Diabetes mellitus. 4. Hyperlipidemia. 5. Hypertension. 6. Osteoarthritis. PROCEDURE: Left total knee arthroplasty. SUMMARY: The patient is a 62-year-old gentleman who underwent a left total knee arthroplasty on the day of admission. Postoperatively, he did well. At the time of discharge, his wound was clean and dry. No calf tenderness. Negative Homans sign. He was tolerating his diet well and tolerating pain with oral pain medication. CONDITION AT DISCHARGE: Good. DISCHARGE DIET: Regular. FOLLOWUP: Followup is in 3 weeks. Discharge medications are home medications, oxycodone as needed for pain and 1 aspirin per day okayed by primary care, home physical therapy will be arranged. Activities, weightbearing as tolerated with a walker. Job ID: [id number] DocumentID: [id number] Dictated Date: 11/05/2022 08:09:35 Insurance Administrative Assistant Date: 11/06/2022 00:41:00 Dictated By: NELSON GROVER MD
[2022-11-06] MEDS: NS IV 1000 ML 1,000 ML IV SCH (00:45)
[2022-11-06] MEDS: HYDROmorphone (DILAUDID) 4 MG TAB PO PRN ×3 (02:14→10:22)
[2022-11-06] MEDS: morphine PCA 100 MG/100 ML BAG IV PRN (02:25)
[2022-11-06 03:54] VITALS: BP 154/94
[2022-11-06 05:31] LABS: HEMOGLOBIN 11.1 g/dL (13.3-17.7)
--- NOTE | 2022-11-06 07:07 | Progress Note ---
Standard Progress Note Progress Notes/Assess & Plan Date Seen by a Provider: Nov 06, 2022 Time Seen by a Provider: 07:06 Progress/Assessment & Plan post op check no complaints radiographs--HW well positioned without fracture LLE--2 plus DP pulse with brisk cap refill intact DF and PF of toes and ankle sensation intact to light touch throughout s/p LTKA mobilize as able Final Diagnosis better today Vital Signs Date Time Temp Pulse Resp B/P (MAP) Pulse Ox O2 Delivery O2 Flow Rate FiO2 11/06/22 03:54 37.4 69 16 154/94 (114) 95 Room Air 11/06/22 00:17 36.8 65 16 154/93 (113) 95 Room Air 11/05/22 21:00 18 11/05/22 21:00 96 Room Air 11/05/22 19:23 36.3 65 18 161/86 (111) 96 Room Air 0.00 0.00 11/05/22 15:34 36.9 68 20 164/86 (112) 95 Room Air 0.00 0.00 11/05/22 13:59 37.0 11/05/22 12:01 37.0 60 18 160/86 (110) 97 Room Air 11/05/22 09:17 37.0 20 11/05/22 09:12 37.0 11/05/22 09:00 Room Air 11/05/22 08:33 37.0 70 20 170/85 (113) 95 Room Air I & O 11/06/22 07:00 Intake Total 3670 ml Output Total 3925 ml Balance -255 ml Laboratory Tests Test 11/06/22 05:22 Range/Units Hemoglobin 11.1 L 13.3-17.7 g/dL Hematocrit 33 L 40-54 % LLE--incision clean and dry no calf tenderness neg Henrique's s/p LTKA DC after PT today NELSON GROVER MD Nov 06, 2022 07:07
[2022-11-06] MEDS ORDERED: morphine INJ 4 MG/ML 1 ML (VIAL/SYRINGE) IVP PRN (07:15)
[2022-11-06 07:25] VITALS: BP 168/99
[2022-11-06] MEDS: SENNA W/DOCUSATE (SENOKOT S) TABLET PO SCH (07:49)
[2022-11-06] MEDS: ASPIRIN E.C. 81 MG (ECOTRIN) TAB PO SCH ×3 (07:49→07:55)
[2022-11-06] MEDS: lisINopril 20 MG (PRINIVIL) TABLET PO SCH (07:49)
[2022-11-06] MEDS: ENOXAPARIN INJECTION 30 MG/0.3 ML SYR SC SCH (07:49)
--- NOTE | 2022-11-06 10:55 | Physical Therapy Daily Note ---
PT Daily Note-Current Subjective Patient agrees to PT. He reports he is much better today with better pain control. Pain Section J - Health Conditions 1. Rarely or not at all 2. Occasionally 3. Frequently 4. Almost constantly 8. Unable to answer Pain Effect on Sleep: 1 Pain Interference with Therapy: 1 Pain Interference w/Day-to-Day: 1 Mental Status Patient Orientation: Normal For Age Transfers SCALE: Activities may be completed with or without assistive devices. 4-Yudvcryigl-shuxgbv completes the activity by him/herself with no assistance from a helper. 5-Set-up or Clean-up Assistance-helper sets up or cleans up; patient completes activity. [place] assists only prior to or following the activity. 4-Supervision or Touching Assistance-helper provides verbal cues and/or touching/steadying and/or contact guard assistance as patient completes activity. Assistance may be provided throughout the activity or intermittently. 3-Partial/Moderate Assistance-helper does LESS THAN HALF the effort. [place] lifts, holds or supports trunk or limbs, but provides less than half the effort. 2-Substantial/Maximal Assistance-helper does MORE THAN HALF the effort. [place] lifts or holds trunk or limbs and provides more than half the effort. 1-Cpbmhhylo-edwyxt does ALL the effort. Patient does none of the effort to complete the activity. Or, the assistance of 2 or more helpers is required for the patient to complete the activity. If activity was not attempted, code reason: 7-Patient Refused. 9-Not Applicable-not attempted and the patient did not perform the activity before the current illness, exacerbation or injury. 10-Not Attempted due to Environmental Limitations-(lack of equipment, weather restraints, etc.). 88-Not Attempted due to Medical Conditions or Safety Concerns. Sit to Stand (QC): 6 Chair/Nta-la-Blngj Xfer(QC): 6 Toilet Transfer (QC): 6 Weight Bearing Left Lower Extremity: Left Weight Bearing/Tolerated Gait Training Distance: 350' Walk 10 feet (QC): 6 Walk 50 ft with 2 Turns(QC): 6 Walk 150 ft (QC): 6 Walking 10ft/uneven surface-QC: 6 Gait Assistive Device: FWW steady, reciprocal pattern Stair Training Stair Training: Handrails/: 1 handrail, uses walker #of Steps: 4 1 Step (curb) (QC): 4 4 Steps (QC): 4 Stairs: Pattern: Step to Exercises Supine Ex: Quad Set, Heel Slides, Straight leg raise Supine Reps: 15 Seated Therapy Exercises: Long arc quads Seated Reps: 15 Assessment Patient to dismiss to home on this date with home health. Patient tolerated all treatment and left knee AROM ~0-90 degrees in sit. Goals addressed PT Operations Controller Goals Operations Controller Goals PT Operations Controller Goals Time Frame: Nov 11, 2022 Roll Left & Right (QC): 6 Sit to Lying (QC): 6 Lying-Sitting on Side/Bed(QC): 6 Sit to Stand (QC): 6 Chair/Trp-jr-Cumlw Xfer(QC): 6 Walk 10 feet (QC): 6 Walk 50ft with 2 Turns (QC): 6 Walk 150 ft (QC): 6 1 Step (curb) (QC): 4 4 Steps (QC): 4 PT Plan Treatment/Plan Treatment Plan: Discontinue PT, goals met Treatment Plan: Bed Mobility, Education, Functional Activity Vincenzo, Functional Strength, Gait, Safety, Therapeutic Exercise, Transfers Treatment Duration: Nov 11, 2022 Frequency: 11 times per week Estimated Hrs Per Day: .25 hour per day Patient and/or Family Agrees t: Yes Time Time In: 830 Time Out: 854 DATE: Nov 06, 2022 Total Billed Treatment Time: 24 Total Billed Treatment 1 visit EX 13 min FA 11 min TRAVIS MCWILLIAMS PT Nov 06, 2022 10:55
[2022-11-06 11:50] VITALS: BP 168/99
== END 2022-11-06 11:50 | disposition home health service (06) | DRG 470 ==
LOC: 4TH 05:54 → SURG 05:55 → 4TH 10:10
PROVIDERS: ADMIT Orthopaedic Surgery; ATTEND Orthopaedic Surgery
PROC: 0SRD0J9 Replacement of Left Knee Joint with Synthetic Substitute, Cemented, Open Approach (ICD-10-PCS; principal; 2022-11-04 07:38)
DX: M17.11 Unilateral primary osteoarthritis, right knee (principal); B18.1 Chronic viral hepatitis B without delta-agent; E78.5 Hyperlipidemia, unspecified; I10 Essential (primary) hypertension; K74.60 Unspecified cirrhosis of liver; E11.9 Type 2 diabetes mellitus without complications; Z96.652 Presence of left artificial knee joint
CPT/HCPCS: 36415; 73560; 85014; 85018; 86850; 86900; 86901; 87081

== ENCOUNTER 2022-12-28 13:35 | Outpatient (RCR) | payer MEDICARE, OTHER ==
[~2022-12-28 13:35] MED LIST changes: +AMOX500C2 PO; +METH10OR PO
== END 2022-12-29 | disposition home or self-care (01) ==
PROVIDERS: ATTEND Orthopaedic Surgery
DX: M25.562 Pain in left knee (principal); Z96.652 Presence of left artificial knee joint; R53.1 Weakness

== ENCOUNTER → 2023-01-29 | Outpatient (RCR) | payer MEDICARE, OTHER | END | disposition home or self-care (01) | PROVIDERS: ATTEND Orthopaedic Surgery | DX: M17.12 Unilateral primary osteoarthritis, left knee (principal); I10 Essential (primary) hypertension ==

== ENCOUNTER 2023-02-25 14:21 | Outpatient (RCR) | payer MEDICARE, OTHER | END 2023-02-28 | disposition home or self-care (01) | PROVIDERS: ATTEND Orthopaedic Surgery | DX: Z96.652 Presence of left artificial knee joint (principal); I10 Essential (primary) hypertension; R26.89 Other abnormalities of gait and mobility; Z72.0 Tobacco use ==

== ENCOUNTER 2023-03-01 14:05 | Outpatient (RCR) | payer MEDICARE, OTHER | END 2023-03-31 | disposition home or self-care (01) | PROVIDERS: ATTEND Orthopaedic Surgery | DX: M17.12 Unilateral primary osteoarthritis, left knee (principal); I10 Essential (primary) hypertension; Z96.652 Presence of left artificial knee joint ==